=== PATIENT | male | born 1955 | race Caucasian/White ===

== ENCOUNTER → 2016-05-25 | Day surgery (SDC) | payer BC, OTHER ==
[2016-05-12 10:32] VITALS: Ht 180.3 cm; Wt 72.7 kg
[~2016-05-25] VITALS: Ht 180.3 cm; Wt 72.7 kg
[~2016-05-25] MED LIST: ASPI81TA28 PO; ATROPINE SULFATE 0.1 MG/ML 5ML SYR IV PRN; EpHEDrine SULFATE INJ 50 MG/ML AMP IV PRN; LIDOCAINE HCL 2% 2 ML VIAL (20MG/ML) ONE; MIDAZOLAM HCL 1 MG/ML 2ML VIAL ONE; ONDANSETRON INJ 2 MG/ML 2 ML VIAL ONE; PROPOFOL IV EMULSION 10 MG/ML 20 ML VIAL IV ONE; SODIUM CHLORIDE 0.9% 500ML 500 ML IV ONE
[2016-05-25 13:27] VITALS: TEMP 36.5
--- NOTE | 2016-05-25 13:43 | Endo History and Physical ---
History & Physical Date of Service: May 25, 2016. Chief Complaint: screening Referring Physician: Dr. Ramo Singh History of Present Illness 61 yo CM who presents for screening colonoscopy. Past Medical History Pulmonary Emboli Past Surgical History Hx Cardiac Surgery: No Hx Internal Defibrillator: No Hx Pacemaker: No Hx Abdominal Surgery: Yes (HERNIA REPAIR) Hx of Implantable Prosthesis: No Hx Post-Op Nausea and Vomiting: No Hx Cancer Surgery: No Hx Thoracic Surgery: No Hx Orthopedic: No Hx Urinary Tract Surgery: No Family History None Social History Smoking Status: Never Smoker Hx Substance Use: No Hx Alcohol Use: No Allergies Coded Allergies: NO KNOWN DRUG ALLERGIES (Verified Allergy, Unknown, ., 05/12/16) Adhesives (Verified Adverse Reaction, Unknown, REDNESS, 05/12/16) Current Medications Reported Home Medications Medications Dose Route/Sig Max Daily Dose Days Date Category Aspirin Ec (Aspirin) 81 Mg Tab 81 Mg PO QAM 05/12/16 Reported Vital Signs Weight (Kilograms): 72.73 Height (Feet): 5 Height (Inches): 11 Date Time Temp Pulse Resp B/P Pulse Ox O2 Delivery O2 Flow Rate FiO2 05/25/16 13:27 36.5 54 16 143/68 98 Room Air Physical Exam General Appearance: WD/WN, no apparent distress Respiratory/Chest: Auscultation: breath sounds normal Cardiovascular: Heart Auscultation: RRR Abdomen: Bowel Sounds: normal Inspection & Palpation: soft, non-distended, no tenderness, guarding & rebound Assessment and Plan Assessment: 61 yo CM who presents for screening colonoscopy. Plan: Proceed with colonoscopy.
--- NOTE | 2016-05-25 14:09 | Discharge Instructions ---
Endoscopy Patient Instructions Date / Procedure(s) Performed May 25, 2016. Colonoscopy Allergy Information Coded Allergies: NO KNOWN DRUG ALLERGIES (Verified Allergy, Unknown, ., 05/12/16) Adhesives (Verified Adverse Reaction, Unknown, REDNESS, 05/12/16) Discharge Date / Findings May 25, 2016. Diverticulosis Internal hemorrhoids Medication Instructions Stopped Medication(s): Took ASA today at 07:00 OK to resume all medications today as prescribed Reported Home Medications Medications Dose Route/Sig Max Daily Dose Days Date Category Aspirin Ec (Aspirin) 81 Mg Tab 81 Mg PO QAM 05/12/16 Reported Provider Instructions Activity Restrictions - No exercising or heavy lifting for 24 hours. - Do not drink alcohol the day of the procedure. - Do not drive a car or operate machinery until the day after the procedure. - Do not make any important decisions or sign important papers in 24 hours after the procedure. Following Day: - Return to full activity which may include returning to work/school. Diet Start your diet with liquids and light foods (jello, soup, juice, toast). Then eat your usual diet if not nauseated. Treatment For Common After Affects For mild abdominal pain, bloating, or excessive gas: - Rest - Eat lightly - Lie on right side Follow-Up Information Follow-up with Dr. Ramo Singh as scheduled Anesthesia Information What You Should Know You have had a procedure that required some medicine to reduce anxiety and discomfort. This treatment is called moderate sedation. After receiving the treatment, you may be sleepy, but you will be able to breathe on your own. The effects of the treatment may last for several hours. Follow these instructions along with Activity/Diet recommendations noted above: * Do NOT do anything where dizziness or clumsiness would be dangerous. * Rest quietly at home today, then you can be up and about tomorrow. * Have a responsible person stay with you the rest of today. * You may have had an I.V. today. If so, you may take the dressing off later today. Recommendations Call your doctor if: * Trouble breathing * Continuous vomiting for more than 24 hours * Temperature above 101 degrees * Severe abdominal pain or bloating * Pain not relieved by pain medicine ordered * There is increased drainage or redness from any incision * A large amount of rectal bleeding greater than 2-3 tablespoons. (If you had a polyp/s removed or have hemorrhoids, a small amount of blood - from the rectum is to be expected.) * You have any unanswered questions or concerns. IN THE EVENT OF A SERIOUS EMERGENCY, GO TO THE NEAREST EMERGENCY ROOM Your discharge instructions were prepared by provider Uzair Morales. Patient Instructions Signature Page Ciro Corrales Patient (or Guardian) Signature/Date: I have read and understand the instructions given to me by my caregivers. Caregiver/RN/Doctor Signature/Date: The above-named patient and/or guardian has received patient instructions on this date. + Original Patient Signature Page (only) stays with chart. Please make copy for patient.
--- NOTE | 2016-05-25 14:13 | GI REPORT ---
Procedure Date: 05/25/2016 1:42 PM THIS REPORT HAS BEEN AMENDED Addendum Number: 1 Addendum Date: 06/07/2016 7:32:32 AM No specimens were collected during this procedure, and therefore, no pathology is pending. Repeat colonoscopy in 10 years. Procedure: Colonoscopy Indications: Screening for colorectal malignant neoplasm Medicines: Monitored Anesthesia Care Complications: No immediate complications. Estimated Blood Loss: Estimated blood loss: none. Procedure: Pre-Anesthesia Assessment: - Prior to the procedure, a History and Physical was performed, and patient medications and allergies were reviewed. The patient's tolerance of previous anesthesia was also reviewed. The risks and benefits of the procedure and the sedation options and risks were discussed with the patient. All questions were answered, and informed consent was obtained. Prior Anticoagulants: The patient has taken aspirin, last dose was day of procedure. ASA Grade Assessment: II - A patient with mild systemic disease. After reviewing the risks and benefits, the patient was deemed in satisfactory condition to undergo the procedure. After I obtained informed consent, the scope was passed under direct vision. Throughout the procedure, the patient's blood pressure, pulse, and oxygen saturations were monitored continuously. The scope was introduced through the anus and advanced to the terminal ileum. The colonoscopy was performed without difficulty. The patient tolerated the procedure well. The quality of the bowel preparation was good. The terminal ileum, ileocecal valve, appendiceal orifice, and rectum were photographed. Findings: Multiple small-mouthed diverticula were found in the sigmoid colon. Non-bleeding internal hemorrhoids were found during retroflexion. The hemorrhoids were small. Impression: - Diverticulosis in the sigmoid colon. - Non-bleeding internal hemorrhoids. - No specimens collected. Recommendation: - Resume previous diet. - Continue present medications. - Repeat colonoscopy for surveillance based on pathology results. - Return to primary care physician as previously scheduled. Uzair Saravanan Morales, DO 05/25/2016 2:12:16 PM This report has been signed electronically. Note Initiated On: 05/25/2016 1:42 PM I attest to the content of the Intraoperative Record and orders documented therein, exceptions below Uzair RiveraHal Morales, DO 06/07/2016 7:33:17 AM This report has been signed electronically.
[2016-05-25 14:38] VITALS: BP 113/71; PULSE 52; O2SAT 98
--- NOTE | 2016-05-25 14:59 | Anesthesiology Progress Note ---
Anesthesia Post Op Note Date & Time May 25, 2016 at 14:58 Vital Signs Pain Intensity: 0 Vital Signs Past 12 Hours Date Time Temp Pulse Resp B/P Pulse Ox O2 Delivery O2 Flow Rate FiO2 05/25/16 14:38 52 16 113/71 98 Room Air 05/25/16 14:21 50 16 108/71 98 Room Air 05/25/16 14:07 62 16 115/64 99 Room Air 05/25/16 13:27 36.5 54 16 143/68 98 Room Air Notes Mental Status: alert / awake / arousable, participated in evaluation Pt Amnestic to Procedure: Yes Nausea / Vomiting: adequately controlled Pain: adequately controlled Airway Patency, RR, SpO2: stable & adequate BP & HR: stable & adequate Hydration State: stable & adequate Anesthetic Complications: no major complications apparent
== END | disposition home or self-care (01) ==
LOC: C.GI 13:06
PROVIDERS: ATTEND Internal Medicine
DX: Z12.11 Encounter for screening for malignant neoplasm of colon (principal); K57.30 Diverticulosis of large intestine without perforation or abscess without bleeding; K64.8 Other hemorrhoids; I26.99 Other pulmonary embolism without acute cor pulmonale; Z98.890 Other specified postprocedural states; Z79.82 Long term (current) use of aspirin

== ENCOUNTER 2019-11-19 16:28 | Observation (INO) ==
--- NOTE | 2019-11-19 17:00 | Emergency Department Note ---
History of Present Illness General Chief complaint: Referred by Doctor Stated complaint: HAD CT, REF BY DR GILBERT Time Seen by Provider: 11/19/19 16:41 Source: patient History of Present Illness Provider complaint: Shortness of breath Onset (ago): week(s) Location: chest Pain Consistency: + intermittent and + now resolved Maximum Pain Intensity: 0 Current Pain Intensity: 0 Quality: + other (Short of breath) Exacerbated By: + other (Running) Associated symptoms: + other (No black or bloody stools or hematuria); no chest pain, no cough, no fever/chills, no headaches and no nausea/vomiting This is a 64-year-old male sent from his doctor's office for hospitalization for multiple PEs on outpatient CT scan. The patient has had shortness of breath for about 2 weeks. The patient states that he only notices it when he is running. He runs approximately 5 days a week and even a light run will make him very short of breath. He states when he is sitting or just walking he does not have any symptoms. He denies any chest or back pain. He has had no fevers, vomiting, abdominal pain, diarrhea, headaches, black or bloody stools, hematuria, cough or cold symptoms or known exposure COVID-19. He did have a negative COVID-19 test 2 weeks ago for his job. He does state that he had similar symptoms approximately 4 years ago and he was diagnosed with multiple PEs at that time. He did have a hypercoagulable work-up at that time which was negative. He is currently on no medications. He denies any leg swelling or pain or immobilization. Home Medications Home Medications Medication Instructions Recorded Confirmed Type aspirin 81 mg tablet,delayed See Rx Instructions .ROUTE 10/26/18 11/19/19 History release .COMPLEX tab Allergies Allergy/AdvReac Type Severity Reaction Status Date / Time No Known Drug Allergies Allergy Unknown . Verified 11/19/19 17:47 adhesive AdvReac Unknown Redness Verified 11/19/19 17:47 Past Med/Surg History Medical History (Updated 11/19/19 @ 23:21 by George Calixto MD) Pulmonary emboli Pulmonary embolism Family History Mother Breast cancer Hypertension Father Myocardial infarction Diabetes Cardiac disorder Brother Obesity Social History Smoking Status: Never smoker Hx Alcohol Use: No Hx Substance Use: No Preferred Language: Ethiopian Communication Ability: Effective Visual Impairment: No Limitations Hearing Ability: Normal Academic Services Coordinator Required: No Beliefs That Will Affect Care: None marital status: Current Living Situation: Spouse current occupational status: employed 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 and A total of 10 systems reviewed and were otherwise negative Physical Exam Vital Signs Vital Signs - 24 hr 11/19/19 16:30 11/19/19 17:36 11/19/19 18:00 Temperature 36.6 C Temperature Source Oral Pulse Rate 65 51 L 66 Pulse Rate from SpO2 Sensor 52 L 60 Pulse Rhythm Regular Pulse Strength Normal Respiratory Rate 16 12 16 Respiratory Effort / Characteristics Non-Labored Respiratory Depth Normal Blood Pressure 176/87 H 141/81 H 139/83 Blood Pressure Mean 116 98 94 Blood Pressure Position Sitting Pulse Oximetry 99 98 97 Oxygen Delivery Method Room Air Sepsis Recent Fever Within 48 Hours No Sepsis New/Unexplained Change in Mental Status N/A Sepsis Action Taken by Nursing No Action Required Constitutional: Vital signs reviewed. Eyes: Pupils are equal round reactive to light. Conjunctiva are noninjected. ENT: Pharynx is clear without erythema or exudate. Mucous membranes are moist. Neck supple without meningeal signs. Respiratory: Clear to auscultation bilaterally. Breath sounds are equal bilaterally. Cardiovascular: Regular rate and rhythm. No rubs or gallops. GI: Soft, nondistended and nontender. Bowel sounds are present. Musculoskeletal: No peripheral edema. No lower extremity tenderness. Integumentary: No cyanosis. or jaundice. Neurological: The patient is awake and alert. No focal deficits. Psychiatric: Normal affect. Not anxious appearing. Course Administered Medications Discontinued Medications Enoxaparin Sodium (Enoxaparin 1 Mg/Kg) 1 mg SQ Q12H DINESH Stop: 12/19/19 18:59 Last Admin: 11/19/19 19:15 Dose: Not Given Documented by: [id number] Enoxaparin Sodium (Enoxaparin 80 Mg/0.8 Ml Syr) 80 mg SQ ONE ONE Stop: 11/19/19 19:16 Last Admin: 11/19/19 19:15 Dose: 80 mg Documented by: [id number] Medical Decision Making Differential Diagnosis Pulmonary embolism, DVT, right heart strain, protein C deficiency, anticardiolipin antibody or other hypercoagulable states Medical Records Attestation: I reviewed the patient's medical records. The patient had a CT scan performed today at 4 PM which showed the following:Pulmonary vasculature: The pulmonary trunk is normal in caliber. There is trace thrombus within the distal right main pulmonary artery. This extends i nto the right middle and lower lobe pulmonary arteries, and extends peripherally into segmental and subsegmental branches. Segmental and subsegmental pulmonary embolus or also seen within the right upper lobe pulmonary artery. Segmental and subsegmental pulmonary emboli are also seen within branches of the left upper and left lower lobe pulmonary arteries. He was admitted for bilateral pulmonary emboli in 2016 and had a negative hypercoagulable work-up at that time. Home Medications Current Medication List: was personally reviewed by me Laboratory Data Attestation: I reviewed the patient's lab results. Result diagrams: 11/19/19 17:30 11/19/19 17:30 Lab Results 11/19/19 11/19/19 11/19/19 Range/Units 17:30 17:30 17:30 WBC 5.50 (4.8-10.8) K/uL RBC 4.78 (4.7-6.1) M/uL Hgb 14.5 (14.0-18.0) g/dL Hct 45.1 (42-52) % MCV 94.4 (80-100) fL MCH 30.3 (25-34) pg MCHC 32.2 (32-36) g/dL RDW Std Deviation 44.8 (36.4-46.3) fL RDW Coeff of Shaun 12.9 (11.5-14.5) % Plt Count 179 (130-400) K/uL MPV 10.1 (7.4-10.4) fL Immature Gran % (Auto) 0.2 % Neut % (Auto) 71.6 % Lymph % (Auto) 18.4 % Burke % (Auto) 7.8 % Eos % (Auto) 1.8 % Baso % (Auto) 0.2 % Neut # (Auto) 3.94 (1.4-6.5) K/uL Lymph # (Auto) 1.01 L (1.2-3.4) K/uL Burke # (Auto) 0.43 (0.11-0.59) K/uL Eos # (Auto) 0.10 (0-0.5) K/uL Baso # (Auto) 0.01 (0-0.2) K/uL Immature Gran # (Auto) 0.01 (0.00-0.02) K/uL PT 10.8 (9.0-12.0) Seconds INR 1.0 (0.9-1.1) APTT 26.5 (21.0-31.0) Seconds PTT Ratio 0.9 Sodium 141 (136-145) mmol/L Potassium 4.4 (3.5-5.1) mmol/L Chloride 107 (98-107) mmol/L Carbon Dioxide 30 (21-32) mmol/L Anion Gap 4.0 (3-11) BUN 17 (7-18) mg/dl Creatinine 1.10 (0.6-1.4) mg/dl Est Cr Clr Drug Dosing Not Reportable Est GFR ( Amer) 81.2 Est GFR (Non-Af Amer) 70.1 BUN/Creatinine Ratio 15.3 (10-20) Glucose 95 (70-99) mg/dl Calcium 9.8 (8.5-10.1) mg/dl Total Bilirubin 0.8 (0.2-1) mg/dl AST 16 (15-37) U/L ALT 27 (12-78) U/L Alkaline Phosphatase 74 (45-117) U/L Troponin I < 0.015 (0-0.045) ng/ml Total Protein 7.0 (6.4-8.2) gm/dl Albumin 4.0 (3.4-5.0) gm/dl Globulin 3.0 (2.5-4.0) gm/dl Albumin/Globulin Ratio 1.3 (0.9-2) ECG Data Attestation: I personally reviewed and interpreted this ECG as follows: Indication: + bradycardia Rate (beats per minute): 49 Rhythm: + sinus bradycardia ECG Intervals/blocks: + Incomplete right bundle branch block ECG ST segments: no ST elevation ECG Findings: no PVCs MDM Narrative I did evaluate the patient as noted above. The patient is presenting with shortness of breath on exertion. He had a CT today which showed multiple pulmonary emboli. IV access was established. I did place an order for continuous cardiac monitoring. The monitor showed normal sinus rhythm at a rate of 60 bpm. I did order and personally review the patient's 12-lead EKG as described above. He has sinus bradycardia without evidence of acute ischemia. I did order and review the patient's blood work as noted in the electronic medical record. CBC and electrolytes are unremarkable. Troponin is negative. I did discuss case with the case sealer as well as Dr. Abdi who will prescribe anticoagulation. He was hospitalized. Impression & Plan Pulmonary emboli Discharge Plan Visit Data Chief Complaint: Referred by Doctor Stated Complaint: HAD CT, REF BY DR GILBERT ED Provider: George Calixto Discharge Problem: Pulmonary emboli Patient Disposition: Admitted As Inpatient Discharge Instructions Interventions: ED Discharge Assessment Last Done: 11/19/19 19:44
--- NOTE | 2019-11-19 17:15 | History & Physical Report ---
Date of Service November 19, 2019 History of Present Illness Primary Care Provider: Ramo Singh MD Allergies Allergy/AdvReac Type Severity Reaction Status Date / Time No Known Drug Allergies Allergy Unknown . Verified 10/31/18 14:36 adhesive AdvReac Unknown REDNESS Verified 10/31/18 14:36 Home Medications Home Medications Medication Instructions Recorded Confirmed Type aspirin 81 mg tablet,delayed 81 mg PO DAILY tab 10/26/18 10/31/18 History release Past Med/Surg History Medical History Pulmonary emboli Pulmonary embolism Family History Mother Breast cancer Hypertension Father Myocardial infarction Diabetes Cardiac disorder Brother Obesity Social History Smoking Status: Never smoker Hx Alcohol Use: No Preferred Language: Filipino Communication Ability: Effective Visual Impairment: No Limitations Hearing Ability: Normal marital status: Current Living Situation: Spouse current occupational status: employed 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
[2019-11-19 17:54] LABS: Basophils # (auto) 0.01 K/uL (0-0.2); Basophils % (auto) 0.2 %; Eosinophils % (auto) 1.8 %; Hematocrit (blood only) 45.1 % (42-52); Hemoglobin 14.5 g/dL (14.0-18.0); Immature Granulocytes # (auto) 0.01 K/uL (0.00-0.02); Immature Granulocytes % (auto) 0.2 %; Lymphocytes # (auto) 1.01 K/uL (1.2-3.4); Lymphocytes % (auto) 18.4 %; Mean Corpuscular Hemoglobin 30.3 pg (25-34); Mean Corpuscular Hgb Conc 32.2 g/dL (32-36); Mean Corpuscular Volume 94.4 fL (80-100); Mean Platelet Volume 10.1 fL (7.4-10.4); Monocytes # (auto) 0.43 K/uL (0.11-0.59); Monocytes % (auto) 7.8 %; Neutrophils # (auto) 3.94 K/uL (1.4-6.5); Neutrophils % (auto) 71.6 %; Platelet Count 179 K/uL (130-400); RDW Coefficient of Variation 12.9 % (11.5-14.5); RDW Standard Deviation 44.8 fL (36.4-46.3); Red Blood Count 4.78 M/uL (4.7-6.1)
[2019-11-19 18:10] LABS: Alanine Aminotransferase 27 U/L (12-78); Aspartate Aminotransferase 16 U/L (15-37); BUN Creatinine Ratio 15.3 (10-20); Blood Urea Nitrogen 17 mg/dl (7-18); Calcium 9.8 mg/dl (8.5-10.1); Carbon Dioxide 30 mmol/L (21-32); Chloride 107 mmol/L (98-107); Est GFR (African American) 81.2; Est GFR (Non-African American) 70.1; Glucose 95 mg/dl (70-99); Potassium 4.4 mmol/L (3.5-5.1); Sodium 141 mmol/L (136-145)
[2019-11-19 18:12] LABS: Partial Thromboplastin Ratio 0.9; Partial Thromboplastin Time 26.5 Seconds (21.0-31.0); Prothrombin Time 10.8 Seconds (9.0-12.0)
[2019-11-19 18:15] LABS: Albumin Globulin Ratio 1.3 (0.9-2); Alkaline Phosphatase 74 U/L (45-117); Bilirubin,Total 0.8 mg/dl (0.2-1); Troponin I < 0.015 ng/ml (0-0.045)
--- NOTE | 2019-11-19 18:22 | History & Physical Report ---
Date of Service November 19, 2019 Assessment & Plan (1) History of pulmonary embolism: (2) Pulmonary emboli: Ciro Corrales is a 64-year-old male with a past medical history of PE who presents with shortness of breath while running with an outpatient CT scan showing bilateral segmental and subsegmental PEs. Bilateral Pulmonary Emboli - CT-PE: The pulmonary trunk is normal in caliber. There is trace thrombus within the distal right main pulmonary artery. This extends into the right middle and lower lobe pulmonary arteries, and extends peripherally into segmental and subsegmental branches. Segmental and subsegmental pulmonary embolus or also seen within the right upper lobe pulmonary artery. Segmental and subsegmental pulmonary emboli are also seen within branches of the left upper and left lower lobe pulmonary arteries. -No chest pain or anginal symptoms. No shortness of breath at rest. SPO2 99% on room air No tachycardia No hypotension Second occurrence of PE, possibly provoked in the setting of recent travel 1 month ago. No evidence of DVT on clinical exam Complete partial anticoagulation work-up from 4 years ago, recommend addition of antiphospholipid testing (APL, lupus antibody, cardiolipin, beta-2 glycoprotein) and prothrombin Recommend Lovenox 1 mg/kg twice daily for 2 weeks. At end of 2 weeks if patient's above coagulopathy testing is negative may transition to Eliquis therapy. If antiphospholipid testing is positive, would recommend warfarin instead. -Defer TTE given exercise tolerance, no history of cardiac disease or anginal symptoms, and no signs of right heart strain on EKG Bilateral lower extremity Dopplers pending No other chronic medical problems. Diet: Regular DVT prophylaxis: Anticoagulation as above CODE STATUS: Full code Disposition: MedSurg/telemetry History of Present Illness Chief Complaint: Shortness of breath while running Primary Care Provider: Ramo Singh MD Ciro Corrales is a 64-year-old male with a past medical history of PE who presents with shortness of breath while running with an outpatient CT scan showing bilateral segmental and subsegmental PEs. Mr. Corrales reports this is his second episode of pulmonary emboli. His first episode was 4 years ago and occurred after a cross-country flight back from [place]. Similar to this time, he experienced only decreased exercise tolerance with shortness of breath while running. He reports he is an avid runner that runs several miles days per week. At the time he had a normal protein C, protein S, Antithrombin III, and factor V Leiden test. He was treated with a brief Lovenox bridge followed by 6 months of treatment with Eliquis. His symptoms resolved, and he has been clinically well for the last 4 years until now. He reports that he had a flight from [place] this past September and he drove back, arriving October 13. He reports in the last 2 weeks he has noticed increased shortness of breath while running. He has been running 5 days/week. He has no symptoms at rest, has not had any chest pain, chest pressure, shortness of breath with light exercise, leg swelling, syncope, presyncope, or pain with breathing. He had an outpatient CT scan which showed bilateral PEs and was told to present to the hospital for further treatment. He has not had any extremity trauma or injuries. He denies recent illness, and reports if it were not for slight shortness of breath when running he would not have any symptoms at all. He lives at home with his , and has 2 adult children who are out of the house. He has not had any recent sick contacts. He has not any fevers, chills, sweats, nausea, vomiting, diarrhea, constipation. He does not take any baseline medications, and reports other than a quarter of an aspirin daily takes no chronic medications. Medical history: Reviewed Surgical history: Reviewed Medications: Reviewed Allergies: Reviewed Social: No tobacco product use, no alcohol use, no recreational drug use. Lives at home with his . No recent sick contacts. Very active, runs several miles 5 days a week. CODE STATUS: Full code Allergies Allergy/AdvReac Type Severity Reaction Status Date / Time No Known Drug Allergies Allergy Unknown . Verified 11/19/19 17:47 adhesive AdvReac Unknown Redness Verified 11/19/19 17:47 Home Medications Home Medications Medication Instructions Recorded Confirmed Type aspirin 81 mg tablet,delayed See Rx Instructions .ROUTE 10/26/18 11/19/19 History release .COMPLEX tab Past Med/Surg History Medical History Pulmonary emboli Pulmonary embolism Family History (Updated 11/20/19 @ 08:00 by Reagan Muniz) Mother Breast cancer Hypertension Father Myocardial infarction Diabetes Cardiac disorder Brother Obesity Denies family history of Deep vein thrombosis Pulmonary embolism Social History Smoking Status: Never smoker Hx Alcohol Use: No Hx Substance Use: No Preferred Language: Bolivian Communication Ability: Effective Visual Impairment: No Limitations Hearing Ability: Normal Orthodontist Required: No Beliefs That Will Affect Care: None marital status: Current Living Situation: Spouse current occupational status: employed 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 NAD. Cooperative. HEENT: Atraumatic, normocephalic. Pulls equal and responsive to light and accommodation. Visual acuity and hearing grossly intact. Mucous membranes moist. Pulm: CTAB A&P. -wheezes, -rales, -rhonchi. Symmetrical chest rise. No increase work of breathing. No respiratory distress. Cardiac: RRR, -mrg. Radial pulses intact and symmetrical. Abdominal: Nontender, nondistended, soft. BS present. Extremities: Intact, atraumatic. No lower extremity edema/swelling. No lower extremity pain. Homans negative bilaterally. Calf circumference equal. Sensation to soft touch intact and symmetrical in toes and fingers bilaterally. Finger flexion/extension, wrist flexion/extension, elbow flexion/extension, shoulder internal rotation, external rotation, abduction, abduction, hip flexion, ankle dorsiflexion/plantar flexion 5/5 without asymmetry or deficit. Results & Data Results & Data ([facility]) Vital Signs (Past 12 Hours) Vital Signs Temp Pulse Resp BP Pulse Ox 11/19/19 16:30 36.6 C 65 16 176/87 H 99 Supervising Physician Co-Signing Physician Notes Attending Attestation & Admission Note: Pt seen/examined, chart reviewed, admission care plan d/w PGY3 Dr Ramo Hansen. I agree w/ the jesus components of his admission documentation. 64yo male with h/o PEs in May 2015 - by history was provoked (trip to [place], [place]) - underwent partial hypercoagulability work-up which was negative. Presents tonight with dyspnea during exercise. He is an avid runner typically running several miles/day. He has noted worsening exercise tolerance over the last few weeks. Took trip again to [place] in late September/early October (flight, and car ride). CTA chest in ER today with multiple PEs. 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 Provoked - car ride to [facility], and flight from [place] back to [place]. No family history of VTE/hereditary hypercoagulability. Start lovenox 1mg/kg BID. Dopplers of legs r/o DVT. Given this is 2nd VTE event, even though both were provoked, recommend lifelong anticoagulation moving forward. Agree w/ prothrombin gene and antiphospholipid ab profile - these were not checked in 2016. Factor 5 Leiden mutation, protein C/S, homocysteine, etc were otherwise negative then. He reports he is UTD on all routine cancer screening. Agree with lovenox monotherapy for now; defer choice of coumadin vs novel agent until above labs return. Could d/c home tomorrow w/ lovenox. Reagan Muniz MD Resident Activity Tracking Resident Involvement: Resident Care Provided Care Provided: Adult Hospital Medicine
[2019-11-19] MEDS ORDERED: ENOXAPARIN 1 MG/KG SQ SCH (19:00)
[2019-11-19] MEDS ORDERED: ENOXAPARIN 80 MG/0.8 ML SYR SQ ONE (19:15)
[2019-11-19] MEDS ORDERED: ACETAMINOPHEN 325 MG TAB PO PRN (20:09)
--- NOTE | 2019-11-20 06:40 | Ultrasound Report ---
BILATERAL LOWER EXTREMITY VENOUS DOPPLER HISTORY: Acute pain of the bilateral lower cavities bilateral PE COMPARISON STUDY: None. FINDINGS: There is normal compressibility, flow, and augmentation within the right lower extremity de ep venous structures. Occlusive likely acute deep venous thrombosis involves one of the paired left p opliteal veins, the distal portion of one of the posterior tibial and also one of the peroneal veins extending proximal to distal. IMPRESSION: 1. No sonographic evidence of right lower extremity deep venous thrombosis. 2. Left lower extremity deep venous thrombosis as above. ACT 112: Negative or not required by law. Electronically signed by: Thierry Hunter M.D. 11/20/2019 6:39 AM
[2019-11-20] MEDS ORDERED: ENOXAPARIN 80 MG/0.8 ML SYR SQ SCH (07:00)
--- NOTE | 2019-11-20 07:59 | Billing Data ---
Date of Service November 19, 2019 Coding Level of Care Code 82560 OBS Care - Level 2
--- NOTE | 2019-11-20 15:02 | Discharge Summary ---
Date of Service November 20, 2019 Principal Diagnosis Pulmonary embolism and DVT Discharge Exam Constitutional WD/WN, vitals as above Eyes EOM intact bilaterally; no conjunctival abnormality ENMT external ear and nose normal, oropharynx normal Neck trachea midline, no thyromegaly normal visual inspection Respiratory normal respiratory effort, lungs clear to auscultation no respiratory distress Cardiovascular RRR, no murmur, no edema Gastrointestinal (Abdomen) Inspection/Auscultation: abdomen normal to inspection; abdomen not distended Musculoskeletal no cyanosis or clubbing, extremities motor strength 5/5 Skin no rashes, warm and dry Neurologic moves all extremities and awake Psychiatric Orientation: alert, oriented to person and cooperative Discharge Data Allergies Allergy/AdvReac Type Severity Reaction Status Date / Time No Known Drug Allergies Allergy Unknown . Verified 11/19/19 17:47 adhesive AdvReac Unknown Redness Verified 11/19/19 17:47 Consultations 11/19/19 16:54 ED Decision to Admit Stat Ordered Studies 11/19/19 20:09 US venous doppler [facility] Urgent Hospital Course (1) Pulmonary emboli: Ciro Corrales is a 64-year-old male with a past medical history of PE who presents with shortness of breath while running with an outpatient CT scan showing bilateral segmental and subsegmental PEs. Bilateral Pulmonary Emboli along with a left leg DVT. - Second episode with first in 2016. Normal troponin and vitals all stable. PESI score of 75, making him low-risk. - Discharged on Eliquis. - Follow up with PCP and possibly Dr. Villarreal. (Discussed with Dr. Villarreal who agreed with outpatient follow-up.) APL syndrome and prothrombin labs sent. Question will be duration of anticoagulation. This is his second VTE. Both provoked, but still indicates a high ongoing risk of further VTE. Will discuss with PCP and Dr. Villarreal. Total Time Total Time Spent Total Time Spent (In Minutes): 35 Discharge Plan Discharge Items Patient Disposition: Home - Self-Care Reason For Visit: HAD CT, REF BY DR GILBERT Discharge Diagnosis: Pulmonary embolism and DVT Activity: Resume your previous activity Non-emergency contact: Primary Care Provider and Oncologist Call non-emergency contact if: your symptoms worsen Follow-up/Referrals: Ramo Singh MD [Primary Care Provider] - 11/26/19 10:00 am Jesus Villarreal DO [Physician] - 12/03/19 2:10 pm (Please follow up with Dr. Villarreal in 2 weeks to discuss the results of your hypercoagulable work-up.) Diet: Regular Addtl Attending Provider Instructions: You were admitted for a pulmonary embolism and also found to have a DVT in your left leg. These clots were probably made more likely by the long trip you recently took. However, this is your second time with blood clots, and this indicates to us that you have a higher likelihood of blood clotting. Fortunately, your heart rate and blood pressure are still very steady and in a good range, so we have very low concern for the blood clots having any effect on your heart. Please continue to take the Eliquis for at least 3 months. Please discuss the possibility of long-term anticoagulation with Dr. Singh or Dr. Villarreal. Given this is your second pulmonary embolism, you may need to consider life-long anticoagulation. Please follow up with Dr. Singh in 1-[address] Villarreal in 2-3 weeks. Pending Studies at Discharge: Yes Studies:: Hypercoagulable testing Stand-Alone Forms: My [facility] [employer], Smoking Cessation Medications and DC Order Prescriptions: New Eliquis 5 mg (74 tabs) tablets,dose pack See Rx Instructions .ROUTE .COMPLEX Qty: 74 RF: 0 Continued aspirin 81 mg tablet,delayed release (/EC) See Rx Instructions .ROUTE .COMPLEX RF: 0 Discharge Orders: Discharge Order (Routine); Ordered 11/20/19 Ordered By: Torin Izquierdo Admission Data Admit Date/Time: 11/19/19 18:54 Attending Provider: Torin Izquierdo Admit Provider: Ramo Hansen Primary Care Provider: Ramo Singh Other Providers: Torin Izquierdo Other Interventions: Discharge Summary Assessment (RN) Last Done: 11/20/19 08:39 Coding Level of Care Code 67518 OBS Care - Discharge Diagnoses Pulmonary emboli I26.99 Acute cor pulmonale presence: without acute cor pulmonale Chronicity: acute Pulmonary embolism type: unspecified
--- NOTE | 2019-11-20 17:38 | Electrocardiogram Report ---
Test Reason : Blood Pressure : / mmHG Vent. Rate : 049 BPM Atrial Rate : 049 BPM P-R Int : 164 ms QRS Dur : 096 ms QT Int : 442 ms P-R-T Axes : 041 -07 015 degrees QTc Int : 399 ms Sinus bradycardia Possible Left atrial enlargement Incomplete right bundle branch block Borderline ECG When compared with ECG of 28-MAY-2015 15:32, No significant change was found Confirmed by Salomón Yen ([id number]) on 11/20/2019 5:38:27 PM Referred By: Rekha Rodriguez Confirmed By:Ever Yen
[2019-11-24 10:56] LABS: B2 Glycoprotein IgA <9 SAU (<=20); B2 Glycoprotein IgG <9 SGU (<=20); B2 Glycoprotein IgM <9 SMU (<=20); Phosphatidylserine IgG <10 U/mL (<10); Phosphatidylserine IgM <25 U/mL (<25)
[2019-11-25 01:56] LABS: Anti Cardiolipin Ab IgG <14 GPL; Anti Cardiolipin Ab IgM 12 MPL
== END 2019-11-20 09:28 | disposition home or self-care (01) ==
LOC: ED 16:28 → 2N 16:28 → SUATTDRO 18:54 → 2N 19:44